=== PATIENT | female | born 1995 | race Caucasian/White ===

== ENCOUNTER 2017-06-23 21:50 | Emergency (ER) | payer OTHER ==
[2017-06-23 22:16] LABS: BILIRUBIN,URINE NEGATIVE (NEGATIVE); GLUCOSE, URINE (UA) NEGATIVE (NEGATIVE); KETONES,URINE (UA) NEGATIVE (NEGATIVE); LEUKOCYTE ESTERASE, URINE NEGATIVE (NEGATIVE); NITRITE,URINE NEGATIVE (NEGATIVE); OCCULT BLOOD,URINE SMALL (NEGATIVE); PH,URINE 6.5 PH (5.0-7.5); PROTEIN,URINE NEGATIVE (NEGATIVE); UROBILINOGEN,URINE 0.2 (NORMAL) E.U./dL (NORMAL)
[2017-06-23 22:19] LABS: CLARITY,URINE HAZY (CLEAR); HCG UR QUAL NEGATIVE
[2017-06-23 22:30] LABS: AMORPHOUS SEDIMENT,UR Moderate /LPF; BACTERIA,URINE Few /HPF (None Seen); SQUAMOUS EPITHELIAL CELL,UR MANY Squamous (<= Few)
[2017-06-23] MEDS ORDERED: LIDOCAINE PATCH 5% TOP STA (22:30)
[2017-06-23] MEDS ORDERED: ACETAMINOPHEN 500 MG TABLET PO STA (22:30)
[2017-06-23] MEDS ORDERED: CYCLOBENZAPRINE 10 MG TABLET PO STA (22:30)
--- NOTE | 2017-06-23 22:36 | ED Physician Documentation ---
PD HPI FEMALE - Stated complaint Stated Complaint: ABD/BACK PX - Chief complaint Chief Complaint: Abd Pain - History obtained from History obtained from: Patient, Family - History of Present Illness Timing - onset: Yesterday Timing - details: Gradual onset, Intermittant Associated symptoms: Back pain, Vaginal bleeding. No: Vaginal discharge, Genital sore/lesion Contributing factors: No: Similar symptoms before: Work up / diagnostics Recently seen: Not recently seen - Additional information Additional information: Patient is 22 year old female with a history of irregular menstrual cycles who is presenting to the emergency department for lower back pain and vaginal bleeding. patient states that she was having vaginal intercourse yesterday and started bleeding. patient states that the bleeding stopped shortly after. patient reports that she does have a history of irregular bleeding and had been trying to regulate it hormonally. Patient states that she has had some low back pain since that time also but denies any trauma. patient denies vaginal discharge, increased urinary frequency or pain with urination. Review of Systems Ten Systems: 10 systems reviewed and negative Constitutional: denies: Fever, Chills GI: reports: Abdominal Pain. denies: Nausea, Vomiting, Constipation, Diarrhea : reports: Vaginal bleeding, Irregular menses. denies: Discharge Musculoskeletal: reports: Back pain PD PAST MEDICAL HISTORY - Past Medical History Past Medical History: Yes - Past Surgical History Past Surgical History: No - Present Medications Home Medications: Ambulatory Orders Medication Instructions Recorded Confirmed Cyclobenzaprine [Flexeril] 10 mg PO TID PRN #10 tablet 06/23/17 Lidocaine Patch 5% [Lidoderm Patch] 1 each TOP DAILY #14 patch 06/23/17 - Allergies Allergies/Adverse Reactions: Allergies Allergy/AdvReac Type Severity Reaction Status Date / Time Sulfa (Sulfonamide Allergy Hives Verified 06/23/17 21:57 Antibiotics) - Social History Does the pt smoke?: No Smoking Status: Never smoker Does the pt drink ETOH?: No Does the pt have substance abuse?: No - Immunizations Immunizations are current?: Yes PD ED PE NORMAL - Vitals Vital signs reviewed: Yes - General General: Alert and oriented X 3, No acute distress - HEENT HEENT: Atraumatic - Cardiac Cardiac: RRR - Respiratory Respiratory: No respiratory distress - Abdomen Abdomen: Soft, Non tender, Non distended - Derm Derm: Normal color - Extremities Extremities: No deformity - Neuro Neuro: Alert and oriented X 3, No motor deficit, No sensory deficit Eye Opening: Spontaneous - Psych Psych: Normal mood PD ED PE EXPANDED - Back Back: Normal ROM, Soft tissue tenderness (bilateral lumbar paraspinal tenderness with no deformity). No: Vertebral tenderness, Limited ROM Results - Vitals Vitals: Vital Signs - 24 hr 06/23/17 21:54 Temperature 36.2 C L Heart Rate 73 Respiratory 16 Rate Blood Pressure 120/80 O2 Saturation 100 Oxygen O2 Source Room air - Labs Labs: Laboratory Tests 06/23/17 22:04 Urine Color LT. YELLOW Urine Clarity HAZY Urine pH 6.5 Ur Specific [place] 1.020 Urine Protein NEGATIVE Urine Glucose (UA) NEGATIVE Urine Ketones NEGATIVE Urine Occult Blood SMALL H Urine Nitrite NEGATIVE Urine Bilirubin NEGATIVE Urine Urobilinogen 0.2 (NORMAL) Ur Leukocyte Esterase NEGATIVE Urine RBC 6-10 H Urine WBC 0-3 Ur Squamous Epith Cells MANY Squamous H Amorphous Sediment Moderate Urine Bacteria Few Ur Microscopic Review INDICATED Urine Culture Comments NOT INDICATED Urine HCG, Qual NEGATIVE PD MEDICAL DECISION MAKING - ED course Complexity details: reviewed old records, reviewed results, re-evaluated patient , considered differential, d/w patient, d/w family ED course: Patient was seen and examined at bedside. Patient was well appearing and in no acute distress. Patient's urine was collected and showed no signs of infection or . patient's abdomen was soft, non-tender, and non-distended. Patient was treated with tylenol and lidoderm patch for her back pain. Patient required no further work up at this tiime and was stable for discharge with outpatient follow up. Departure - Departure Disposition: 01 Home, Self Care Clinical Impression: Low back pain Condition: Good Instructions: ED Sprain Strain Lumbar Follow-Up: Radha Teixeira MD [Primary Care Provider] - As Needed Prescriptions: Cyclobenzaprine [Flexeril] 10 mg PO TID PRN #10 tablet PRN Reason: Spasms Lidocaine Patch 5% [Lidoderm Patch] 1 each TOP DAILY #14 patch Comments: You can try ibuprofen (600mg) and tylenol (1000mg) as needed for pain. You can also try alternating between ice and heat as well as the lidoderm patches. You can try the flexeril for spams but you should not take it with other sedatives or alcohol. You cannot drive or operate heavy machinery while taking it. You should follow up with your doctor if your symptoms persist. You may return to the emergency department at any time for new, worsening or uncontrollable symptoms.
[2017-06-23 23:10] VITALS: BP 111/77
== END 2017-06-23 23:10 | disposition home or self-care (01) ==
LOC: ED 21:50
DX: M54.5 Low back pain (principal)
CPT/HCPCS: 81001; 81025; 99283; A9270; 81003; 87086

== ENCOUNTER 2018-04-02 13:17 | Day surgery (SDC) | payer OTHER ==
[2018-04-02] MEDS ORDERED: ceFAZolin 2 GM/50 ML 2 GM/50 ML BAG IV ONE (13:22)
[2018-04-02] MEDS ORDERED: LACTATED RINGERS 1,000 ML IV ONE ×2 (13:49→16:05)
--- NOTE | 2018-04-02 13:52 | ANESTHESIA ---
Pre-Anesthesia VS, & Labs - Diagnosis Missed - Procedure D and C Height 5 ft 1.81 in Weight (kg) 68.49 kg Body Mass Index 29.2 - NPO >8 hours (water since 1050) - Is Patient ?: Yes Home Medications and Allergies Home Medications: Ambulatory Orders Pnv No.95/Ferrous Fum/Folic AC [ Caplet] 1 each PO 04/01/18 Acetaminophen [Tylenol] 2 tab PO DAILY PRN 04/02/18 Pnv No.95/Ferrous Fum/Folic AC [ Caplet] 1 each PO 04/01/18 Allergies/Adverse Reactions: Allergies Allergy/AdvReac Type Severity Reaction Status Date / Time Sulfa (Sulfonamide Allergy Hives Verified 04/01/18 13:56 Antibiotics) Anes History & Medical History - Anesthetic History Anesthesia Complications: reports: No previous complications Family history of Anesthesia Complications: Denies Family history of Malignant Hyperthermia: Denies - Medical History Cardiovascular: reports: None Pulmonary: reports: None Gastrointestinal: reports: None Urinary: reports: None Neuro: reports: None Musculoskeletal: reports: None Endocrine/Autoimmune: reports: None Blood Disorders: reports: None Skin: reports: None Smoking Status: Never smoker Psychosocial: reports: No issues indicated Exam General: Alert, Oriented x3 Dental: WNL Mouth Opening: Greater than 4 Fingerbreadths Neck Mobility: Normal Mallampati classification: I Thyromental Distance: greater than 6 cm Respiratory: Lungs clear Cardiovascular: Regular rate, Other (Systolic "snap" heard) Mental/Cognitive Status: Alert/Oriented X3 Cognitive Status: Within normal limits Plan Anesthesia Type: General Consent for Procedure(s) Verified and Reviewed: Yes Code Status: Attempt Resuscitation ASA classification: 1-Healthy patient Is this case an emergency?: No
[2018-04-02] MEDS ORDERED: BUPIVACAINE 0.25%-EPI 1:200000 PF 30 ML VIAL ONE (14:01)
[2018-04-02] MEDS ORDERED: SCOPOLAMINE PATCH TOP ONE (14:30)
[2018-04-02] MEDS ORDERED: BUPIVACAINE 0.25%-EPI 1:200000 PF 10 ML VIAL SUBQ ONE (15:06)
[2018-04-02] MEDS ORDERED: BUPIVACAINE 0.25%-EPI 1:200000 PF 30 ML VIAL SUBQ ONE (15:14)
[2018-04-02] MEDS ORDERED: PROPOFOL 200 MG/20 ML VIAL IVP ONE (15:15)
[2018-04-02] MEDS ORDERED: KETOROLAC 30 MG/ML VIAL IVP ONE (15:15)
[2018-04-02] MEDS ORDERED: MIDAZOLAM 2 MG/2 ML VIAL IVP ONE (15:15)
[2018-04-02] MEDS ORDERED: LIDOCAINE-MPF 2% 5 ML VIAL IM ONE (15:15)
[2018-04-02] MEDS ORDERED: fentaNYL 100 MCG/2 ML VIAL IVP ONE (15:15)
[2018-04-02] MEDS ORDERED: ONDANSETRON 4 MG/2 ML VIAL IVP ONE (15:15)
[2018-04-02] MEDS ORDERED: SILVER NITRATE APPLICATOR TOP ONE (15:25)
[2018-04-02] MEDS ORDERED: ONDANSETRON 4 MG/2 ML VIAL IVP PRN (15:34)
[2018-04-02] MEDS ORDERED: HYDROcod/ACETAM 10 MG/325 MG TABLET PO PRN (15:34)
--- NOTE | 2018-04-02 15:39 | OPERATIVE REPORT ---
Operative Report - General Procedure Date: 04/02/18 Planned Procedure: Suction Dilation and Curettage Pre-Op Diagnosis: Incomplete (early loss) Procedure Performed: Suction Dilation and Curettage Post Op Diagnosis: DONI - Procedure Note Primary Surgeon: Dr. Pastora Reddy Secondary Surgeon: None Anesthesia Provider: Dr. Vito Urrutia Anesthesia Technique: General ET tube, Local Pathology: Uterine contents IV Fluids (mL): 450 Estimated Blood Loss (mL): 25 Urine Output (mL): 17 Complications: None - Other Other Information/Narrative: Indications: The patient is a 22-year-old 1 para 0 female here for suction dilation and curettage for surgical management of an incomplete (early loss). Loss was diagnosed by ultrasound, showing a 7+3-week size fetus with no cardiac activity. She has had bleeding, cramping, and passage of clots with small amounts of tissue since the diagnosis made proximally 1 week ago. She has had no fever or chills. After reviewing management options, she is desiring surgical management to help complete the process. The risks, benefits, limitations, alternatives, and expectations of surgery were discussed. The consent was reviewed and signed prior to surgery. Findings: Uterus retroverted and approximately 8 weeks in size. No adnexal masses were palpable. A small amount of tissue and clot was removed. The patient was taken to the operating room, where general endotracheal anesthesia was administered without difficulty. She was then positioned in the high dorsal lithotomy position with her lower extremities in [place] stirrups. Exam under anesthesia was then performed with the findings as noted above. Vagina and perineum were then prepped and draped in a sterile fashion, and bladder was drained with an in-and-out catheterization. Procedure Time-Out was then performed. A sterile bivalved speculum was then placed into the vagina, and the anterior lip of the cervix was grasped with a single-tooth tenaculum. Quarter percent Marcaine with epinephrine was then injected at the 2:00, 4:00, 7:00, and 10:00 positions for a paracervical block. Serial dilation using Hegar dilators was then performed until an 8 mm curved rigid suction curette could be gently advanced to the uterine fundus. Using gentle suction, tissue and clot were removed. Sharp curettage was then performed with minimal additional tissue noted. Good crie was noted on all 4 thorpe of the uterus. The suction curette was then reintroduced to ensure there was no residual tissue, and none was noted. There was minimal bleeding from the cervix at this time. The tenaculum was removed, and the tenaculum sites were hemostatic following application of silver nitrate. At this point, the procedure was deemed completed. Sponge, lap, and needle count were correct x 3, and there were no complications. The patient was replaced supine, awakened, extubated, and transferred to the PACU in stable condition.
[2018-04-02] MEDS ORDERED: HYDROmorphone 0.5 MG/0.5 ML SYRINGE ONE (15:45)
[2018-04-02] MEDS ORDERED: ACETAMINOPHEN 1,000 MG/100 ML 100 ML IV ONE (16:03)
[2018-04-02] MEDS ORDERED: HYDROcod/ACETAM 10 MG/325 MG TABLET ONE (16:06)
[2018-04-02] MEDS ORDERED: ONDANSETRON 4 MG/2 ML VIAL ONE (16:19)
[2018-04-02 17:09] VITALS: BP 104/78
== END 2018-04-02 13:18 | disposition home or self-care (01) ==
LOC: SDS 13:17
PROVIDERS: ATTEND Obstetrics & Gynecology
PROC: 10D17ZZ Extraction of Products of Conception, Retained, Via Natural or Artificial Opening (ICD-10-PCS; principal; 2018-04-02 14:30)
DX: O03.1 Delayed or excessive hemorrhage following incomplete spontaneous abortion (principal); Z87.891 Personal history of nicotine dependence
CPT/HCPCS: 59812; A9270; J0131; J0690; J1170; J3490; J7120